=== PATIENT | female | born 1945 | race Caucasian/White ===

== ENCOUNTER 2020-02-18 10:56 | Observation (INO) | payer OTHER, BC ==
[2020-02-18] MEDS ORDERED: METOPROLOL TARTRATE 5 MG/5 ML INJ IV ONE (11:33)
[2020-02-18 11:41] LABS: Protime INR 0.98
[2020-02-18 11:45] LABS: Absolute Lymphocytes (CBC) 1.4 K/uL (0.7-4.9); Basophils % 0.5 % (0-1.3); Hematocrit 35.3 % (36.0-45.0); Lymphocytes % 14.1 % (15.3-44.8); MPV 8.9 fL (7.6-11.3); RBC Red Blood Cell Count 4.65 M/uL (3.86-4.86)
--- NOTE | 2020-02-18 11:46 | EDPHYS ---
Physician Documentation [facility] Name: Danielle Johnson Age: 74 yrs Sex: Female : 1945 Arrival Date: 02/18/2020 Time: 10:59 Bed 2 Private MD: ED Physician Alli Santiago HPI: 02/17 19:32 This 74 yrs old Female presents to ER via Wheelchair with complaints of Afib kdr w/ RVR. 19:32 The patient presents with a history of heart racing. Context: The symptoms occur at kdr rest. Onset: The symptoms/episode began/occurred at an unknown time. Duration: The patient or guardian reports a single episode, that is still ongoing. Modifying factors: The symptoms are aggravated by nothing. The symptoms are alleviated by nothing. Associated signs and symptoms: The patient has no apparent associated signs or symptoms. Severity of symptoms: At their worst the symptoms were moderate in the emergency department the symptoms are unchanged. The patient has not experienced similar symptoms in the past. The patient was sent from client renewal specialist office. Historical: - Allergies: 11:00 Bactrim; rb1 - Immunization history:: Adult Immunizations up to date. - Social history:: Smoking status: Patient/guardian denies using. ROS: 19:32 Constitutional: Negative for fever, chills, and weight loss, Eyes: Negative for injury, kdr pain, redness, and discharge, ENT: Negative for injury, pain, and discharge, Neck: Negative for injury, pain, and swelling, Cardiovascular: Negative for chest pain, palpitations, and edema - the patient states that she had no idea her heart rate was elevated Respiratory: Negative for shortness of breath, cough, wheezing, and pleuritic chest pain, Abdomen/GI: Negative for abdominal pain, nausea, vomiting, diarrhea, and constipation, Back: Negative for injury and pain, : Negative for injury, bleeding, discharge, and swelling, MS/Extremity: Negative for injury and deformity, Skin: Negative for injury, rash, and discoloration, Neuro: Negative for headache, weakness, numbness, tingling, and seizure activity. Psych: Negative for depression, anxiety, suicide ideation, homicidal ideation, and hallucinations, Allergy/Immunology: Negative for hives, rash, and allergies, Endocrine: Negative for neck swelling, polydipsia, polyuria, polyphagia, and marked weight changes, Hematologic/Lymphatic: Negative for swollen nodes, abnormal bleeding, and unusual bruising. Exam: 11:59 ECG was reviewed by the Attending Physician. kdr 19:32 Constitutional: This is a well developed, well nourished patient who is awake, alert, kdr and in no acute distress. Head/Face: Normocephalic, atraumatic. Eyes: Pupils equal round and reactive to light, extra-ocular motions intact. Lids and lashes normal. Conjunctiva and sclera are non-icteric and not injected. Cornea within normal limits. Periorbital areas with no swelling, redness, or edema. Neck: Trachea midline, no thyromegaly or masses palpated, and no cervical lymphadenopathy. Supple, full range of motion without nuchal rigidity, or vertebral point tenderness. No Meningismus. Chest/axilla: Normal chest wall appearance and motion. Nontender with no deformity. No lesions are appreciated. Respiratory: Lungs have equal breath sounds bilaterally, clear to auscultation and percussion. No rales, rhonchi or wheezes noted. No increased work of breathing, no retractions or nasal flaring. Abdomen/GI: Soft, non-tender, with normal bowel sounds. No distension or tympany. No guarding or rebound. No evidence of tenderness throughout. Back: No spinal tenderness. No costovertebral tenderness. Full range of motion. Skin: Warm, dry with normal turgor. Normal color with no rashes, no lesions, and no evidence of cellulitis. MS/ Extremity: Pulses equal, no cyanosis. Neurovascular intact. Full, normal range of motion. Neuro: Awake and alert, GCS 15, oriented to person, place, time, and situation. Cranial nerves II-XII grossly intact. Motor strength 5/5 in all extremities. Sensory grossly intact. Cerebellar exam normal. Normal gait. Psych: Awake, alert, with orientation to person, place and time. Behavior, mood, and affect are within normal limits. 19:32 Cardiovascular: Rate: tachycardic, Rhythm: irregularly irregular, Pulses: no pulse deficits are appreciated, Heart sounds: normal, Edema: is not appreciated. Vital Signs: 11:00 BP 146 / 94; Pulse 146; Resp 21; Pulse Ox 98% on R/A; Weight 92.53 kg (R); Height 5 ft. rb1 7 in. (170.18 cm) (R); Pain 0/10; 11:15 BP 126 / 63; Pulse 147; Resp 24; Pulse Ox 98% ; Pain 0/10; rb1 11:30 BP 121 / 69; Pulse 118; Resp 22; Pulse Ox 97% on R/A; Pain 0/10; rb1 11:45 BP 97 / 68; Pulse 107; Resp 22; Pulse Ox 98% ; Pain 0/10; rb1 12:00 BP 92 / 66; Pulse 110; Resp 21; Pulse Ox 97% ; rb1 12:15 BP 103 / 68; Pulse 108; Resp 20; Pulse Ox 98% ; Pain 0/10; rb1 13:15 BP 99 / 73; Pulse 114; Resp 21; Pulse Ox 99% ; Pain 0/10; rb1 14:00 BP 120 / 81; Pulse 117; Resp 19; Pulse Ox 98% ; rb1 15:20 BP 98 / 57; Pulse 68; Resp 21; Pulse Ox 98% ; Pain 0/10; rb1 11:00 Body Mass Index 31.95 (92.53 kg, 170.18 cm) rb1 MDM: 11:46 Patient medically screened. kdr 19:32 Data reviewed: vital signs, nurses notes. Counseling: I had a detailed discussion with kdr the patient and/or guardian regarding: the historical points, exam findings, and any diagnostic results supporting the discharge/admit diagnosis, lab results, radiology results, the need for further work-up and treatment in the hospital. 02/17 11:21 Order name: Basic Metabolic Panel [facility] 02/17 11:21 Order name: CBC with Diff [facility] 02/17 11:21 Order name: LFT's [facility] 02/17 11:21 Order name: Magnesium [facility] 02/17 11:21 Order name: NT PRO-BNP [facility] 02/17 11:21 Order name: PT-INR [facility] 02/17 11:21 Order name: Troponin (emerg Dept Use Only) [facility] 02/17 11:21 Order name: Basic Metabolic Panel [facility] 02/17 11:21 Order name: CBC with Automated Diff [facility] 02/17 11:21 Order name: Liver (Hepatic) Function [facility] 02/17 12:03 Order name: LAB Add On sv 02/17 12:25 Order name: T4 Free [facility] 02/17 12:25 Order name: Thyroid Stimulating Hormone [facility] 02/17 12:25 Order name: T3, Total [facility] 02/17 11:09 Order name: EKG; Complete Time: 11:09 sv 02/17 11:21 Order name: XRAY Chest (1 view) [facility] 02/17 14:35 Order name: CONS Physician Consult [facility] 02/17 14:35 Order name: Regular [facility] 02/17 14:35 Order name: Basic Metabolic Panel [facility] 02/17 14:35 Order name: Basic Metabolic Panel [facility] 02/17 14:35 Order name: Troponin I [facility] 02/17 14:35 Order name: Troponin I [facility] 02/17 14:35 Order name: Troponin I [facility] 02/17 14:36 Order name: EKG Electrocardiogram [facility] 02/17 14:36 Order name: EKG Electrocardiogram [facility] 02/17 14:36 Order name: EKG Electrocardiogram [facility] 02/17 14:36 Order name: EKG Electrocardiogram [facility] 02/17 11:09 Order name: EKG - Nurse/Tech; Complete Time: 11:09 sv 02/17 11:21 Order name: Cardiac monitoring; Complete Time: 11:29 kdr 02/17 11:21 Order name: IV Saline Lock; Complete Time: 11:29 kdr 02/17 11:21 Order name: Labs collected and sent; Complete Time: 11:29 kdr 02/17 11:21 Order name: O2 Per Protocol; Complete Time: 11:29 kdr 02/17 11:21 Order name: O2 Sat Monitoring; Complete Time: 11:29 kdr EC:59 Rate is 146 beats/min. Rhythm is irregularly irregular, A fib with No ectopy. QRS Matthews kdr is Normal. WA interval is normal. QRS interval is normal. Clinical impression: Atrial Fibrillation. Administered Medications: 11:25 Drug: Lopressor 5 mg Route: IVP; Site: left antecubital; rb1 11:48 Drug: Lopressor 5 mg Route: IVP; Site: left antecubital; rb1 12:11 Follow up: Response: No adverse reaction rb1 12:19 Drug: NS 0.9% 500 ml Route: IV; Rate: bolus; Site: left antecubital; rb1 13:52 Follow up: IV Status: Completed infusion rb1 15:20 Drug: PlaVIX 300 mg Route: PO; dm5 15:50 Follow up: Response: No adverse reaction rb1 Disposition: 02/18/20 11:46 Hospitalization ordered by Serafin Carr for Inpatient Admission. Preliminary diagnosis is Atrial fibrillation and flutter. - Bed requested for Telemetry/MedSurg (Inpatient). - Status is Inpatient Admission. rb1 - Condition is Fair. - Problem is new. - Symptoms have improved. Signatures: Dispatcher [employer] EDMS Bridgette Blakely, RN RN dm5 Sindi Simms, RN CEDRIC Alli Santiago MD MD [facility] Jannette Israel, RN RN rb1 Tristian Villar RN RN ja1 Corrections: (The following items were deleted from the chart) 14:58 11:46 Hospitalization Ordered by Serafin Carr MD for Inpatient Admission. Preliminary ja1 diagnosis is Atrial fibrillation and flutter. Bed requested for Telemetry/MedSurg (Inpatient). Status is Inpatient Admission. Condition is Fair. Problem is new. Symptoms have improved. kdr 15:55 14:58 02/18/2020 11:46 Hospitalization Ordered by Serafin Carr MD for Inpatient rb1 Admission. Preliminary diagnosis is Atrial fibrillation and flutter. Bed requested for Telemetry/MedSurg (Inpatient). Status is Inpatient Admission. Condition is Fair. Problem is new. Symptoms have improved. ja1
--- NOTE | 2020-02-18 11:46 | ER ---
Nurse's Notes [facility] Name: Danielle Johnson Age: 74 yrs Sex: Female : 1945 Arrival Date: 02/18/2020 Time: 10:59 Bed 2 Private MD: Diagnosis: Atrial fibrillation and flutter Presentation: 02/17 11:00 Coronavirus screen: Proceed with normal triage. Ebola Screen: Patient denies travel to [facility] an Ebola-affected area in the 21 days before illness onset. Initial Sepsis Screen: Does the patient meet any 2 criteria? RR > 20 per min. HR > 90 bpm. Yes Does the patient have a suspected source of infection? No. Patient's initial sepsis screen is negative. 11:10 Chief complaint: Patient states: sent by Dr Baker's office for Afib w/ RVR. Denies sv CP. Reports SOB at night only. Pr reports that she had seen her PCP for her heart and she was feeling her heart skipping beats. Risk Assessment: Do you want to hurt yourself or someone else? Patient reports no desire to harm self or others. Onset of symptoms was February 18, 2020. 11:10 Method Of Arrival: Wheelchair sv 11:10 Acuity: MELISSA 1 sv Historical: - Allergies: 11:00 Bactrim; rb1 - Immunization history:: Adult Immunizations up to date. - Social history:: Smoking status: Patient/guardian denies using. Screenin:00 Abuse screen: Denies threats or abuse. Nutritional screening: No deficits noted. rb1 Tuberculosis screening: No symptoms or risk factors identified. Fall Risk None identified. Assessment: 11:00 General: Appears in no apparent distress. comfortable, Behavior is calm, cooperative. rb1 Pain: Denies pain. Neuro: Level of Consciousness is awake, alert, obeys commands, Oriented to person, place, time, situation. Cardiovascular: Capillary refill < 3 seconds Patient's skin is warm and dry. Rhythm is atrial fibrillation with rapid ventricular response. Respiratory: Airway is patent Respiratory effort is even, unlabored, Respiratory pattern is regular, symmetrical. GI: No signs and/or symptoms were reported involving the gastrointestinal system. : No signs and/or symptoms were reported regarding the genitourinary system. Musculoskeletal: Range of motion: intact in all extremities. 12:00 Reassessment: Patient appears in no apparent distress at this time. Pt. resting with rb1 eyes closed, respirations even, unlabored. 13:00 Reassessment: Patient appears in no apparent distress at this time. Patient and/or rb1 family updated on plan of care and expected duration. Pain level reassessed. Patient is alert, oriented x 3, equal unlabored respirations, skin warm/dry/pink. Patient denies pain at this time. 13:56 Reassessment: Dr Santiago to input admission orders. sv 14:00 Reassessment: Patient appears in no apparent distress at this time. No changes from rb1 previously documented assessment. Pt. talking on the telephone. 14:35 Reassessment: [place] sent to outside lab for tyroid levels. sv 15:00 Reassessment: Patient appears in no apparent distress at this time. Patient and/or rb1 family updated on plan of care and expected duration. Pain level reassessed. Patient is alert, oriented x 3, equal unlabored respirations, skin warm/dry/pink. Patient denies pain at this time. Respiratory: Denies shortness of breath. 15:22 Reassessment: Tried to call report, unable to give report at this time, unsure what rb1 nurse is getting the pt. 15:36 Reassessment: Tried to call report, spoke to JOSEFINA RN and he stated, that [employer] rb1 called and wants him in the ED so he is no getting the pt. now, Leanna will be giving his pt. to other nurses. Vital Signs: 11:00 BP 146 / 94; Pulse 146; Resp 21; Pulse Ox 98% on R/A; Weight 92.53 kg (R); Height 5 ft. rb1 7 in. (170.18 cm) (R); Pain 0/10; 11:15 BP 126 / 63; Pulse 147; Resp 24; Pulse Ox 98% ; Pain 0/10; rb1 11:30 BP 121 / 69; Pulse 118; Resp 22; Pulse Ox 97% on R/A; Pain 0/10; rb1 11:45 BP 97 / 68; Pulse 107; Resp 22; Pulse Ox 98% ; Pain 0/10; rb1 12:00 BP 92 / 66; Pulse 110; Resp 21; Pulse Ox 97% ; rb1 12:15 BP 103 / 68; Pulse 108; Resp 20; Pulse Ox 98% ; Pain 0/10; rb1 13:15 BP 99 / 73; Pulse 114; Resp 21; Pulse Ox 99% ; Pain 0/10; rb1 14:00 BP 120 / 81; Pulse 117; Resp 19; Pulse Ox 98% ; rb1 15:20 BP 98 / 57; Pulse 68; Resp 21; Pulse Ox 98% ; Pain 0/10; rb1 11:00 Body Mass Index 31.95 (92.53 kg, 170.18 cm) rb1 ED Course: 10:59 Patient arrived in ED. sv 11:00 Arm band placed on right wrist. rb1 11:00 Patient has correct armband on for positive identification. Bed in low position. Call rb1 light in reach. Side rails up X 1. playground monitor on. Pulse ox on. NIBP on. 11:01 Gus Dickson, RN is Primary Nurse. bp 11:11 Triage completed. sv 11:19 Alli Santiago MD is Attending Physician. kdr 11:22 Inserted saline lock: 20 gauge in left antecubital area, using aseptic technique. dh3 11:46 Serafin Carr MD is Hospitalizing Provider. kdr 11:51 XRAY Chest (1 view) In Process Unspecified. EDMS 13:42 Primary Nurse role handed off by Gus Dickson, CEDRIC rb1 13:42 Jannette Israel, RN is Primary Nurse. rb1 15:55 No provider procedures requiring assistance completed. Patient admitted, IV remains in rb1 place. Administered Medications: 11:25 Drug: Lopressor 5 mg Route: IVP; Site: left antecubital; rb1 11:48 Drug: Lopressor 5 mg Route: IVP; Site: left antecubital; rb1 12:11 Follow up: Response: No adverse reaction rb1 12:19 Drug: NS 0.9% 500 ml Route: IV; Rate: bolus; Site: left antecubital; rb1 13:52 Follow up: IV Status: Completed infusion rb1 15:20 Drug: PlaVIX 300 mg Route: PO; dm5 15:50 Follow up: Response: No adverse reaction rb1 Outcome: 11:46 Decision to Hospitalize by Provider. kdr 15:55 Patient left the ED. rb1 15:55 Admitted to Med/surg accompanied by nurse, via wheelchair, room 208. Edilberto took the rb1 pt. to the floor, with chart. 15:55 Condition: stable 15:55 Instructed on the need for admit. Signatures: Dispatcher [employer] EDMS Bridgette Blakely RN RN dm5 Sindi Simms RN Alli Villalpando MD MD [facility] Jannette Israel RN RN [facility] Betzy Pradhan [facility] Gus Dickson RN RN bp Corrections: (The following items were deleted from the chart) 11:30 General: Appears in no apparent distress. comfortable, Behavior is calm, rb1 cooperative, rb1 11:30 Pain: Denies pain. rb1 rb1 11:30 Neuro: Level of Consciousness is awake, alert, obeys commands, Oriented to rb1 person, place, time, situation, rb1 11:30 Cardiovascular: Capillary refill < 3 seconds Patient's skin is warm and dry. rb1 Rhythm is atrial fibrillation with rapid ventricular response rb1 11:30 Respiratory: Airway is patent Respiratory effort is even, unlabored, Respiratory rb1 pattern is regular, symmetrical, rb1 11:30 GI: No signs and/or symptoms were reported involving the gastrointestinal system. rb1 rb1 11:30 : No signs and/or symptoms were reported regarding the genitourinary system. rb1rb1 11:30 Musculoskeletal: Range of motion: intact in all extremities, rb1 rb1
[2020-02-18 12:07] LABS: ALT/SGPT 9 U/L (12-78); AST/SGOT 9 U/L (15-37); Albumin 3.1 g/dL (3.4-5.0); Alkaline Phosphatase 100 U/L (45-117); BUN Blood Urea Nitrogen 13 mg/dL (7-18); Bicarbonate 25 mmol/L (21-32); Bilirubin Direct 0.1 mg/dL (0-0.2); Bilirubin Total 0.5 mg/dL (0.2-1.0); Glucose Level 98 mg/dL (74-106); Magnesium 1.5 mg/dL (1.8-2.4); NT PRO-BNP 1722 pg/mL (<125); Potassium 3.9 mmol/L (3.5-5.1); Protein, Total 7.5 g/dL (6.4-8.2); Sodium Level 139 mmol/L (136-145); Troponin (Emerg Dept Use Only) < 0.02 ng/mL (0.0-0.045)
--- NOTE | 2020-02-18 12:12 | RAD REPORT ---
EXAM DESCRIPTION: RAD - Chest Single View - 02/18/2020 11:50 am CLINICAL HISTORY: Chest pain;Palpitations COMPARISON: January 05, 2020 TECHNIQUE: AP portable chest image was obtained 02/18/2020 11:50 am . FINDINGS: Lungs are clear. Heart and vasculature are normal. No measurable pleural effusion and no p neumothorax. No acute bony abnormality seen. No acute aortic findings suspected. IMPRESSION: No acute cardiopulmonary process. No significant change from comparison.
[2020-02-18] MEDS ORDERED: NA CHLORIDE 0.9% 500 ML ONE (12:21)
[2020-02-18 13:07] LABS: Thyroid Stimulating Hormone 0.684 uIU/mL (0.360-3.740)
--- OUTSIDE RECORDS SUMMARY | 2020-02-18 13:41 | XMS REPORT | Continuity of Care Document ---
:1945 Author Organization [facility] t Address [address] [place] [address] Dr. Mccullough [address] [place] [id number] Care Team Providers Name Role Phone Unavailable Unavailable Unavailable Problems This patient has no known problems. Allergies, Adverse Reactions, Alerts This patient has no known allergies or adverse reactions. Medications This patient has no known medications. Procedures This patient has no known procedures. Results This patient has no known results.
[2020-02-18] MEDS ORDERED: ACETAMINOPHEN 500 MG TAB PO PRN (14:32)
[2020-02-18] MEDS ORDERED: ONDANSETRON 4 MG/2 ML VIAL IV PRN (14:32)
[2020-02-18] MEDS ORDERED: CLOPIDOGREL 75 MG TABLET ONE ×3 (15:25→15:32)
[2020-02-18 17:04] VITALS: BMI 31.9
--- NOTE | 2020-02-18 21:43 | P.SSS ---
Patient History Date of Service: 02/18/20 Reason for admission: RAPID A FIB. SENT BY DR. LINN History of Present Illness: PILAR HAS NO ACUTE SYMPTOMS. SHE WENT TO DR. LINN FOR CARDIAC CHECK UP, WAS FOUND TO HAVE RAPID A FIB, SENT TO ER. DR. TRINH MEDICATED HER WITH B RAYMON AND CONTROLLED RATE. I PUT HER ON ELIQUIS BID START TONIGHT. IDEALLY SHE HAVING NO SYMPOTMS WILL BE GOOD CANDIDATE FOR LIFE TIME ELIQUIS AND RATE CONTROL. Allergies sulfamethoxazole [From Bactrim] Allergy (Verified 08/25/18 09:17) Itching/Hives/Rash trimethoprim [From Bactrim] Allergy (Verified 08/25/18 09:17) Itching/Hives/Rash Home Medications: Aspirin 81 mg PO DAILY 07/29/18 Atorvastatin Calcium [Lipitor] 20 mg PO BEDTIME 07/29/18 Cyanocobalamin [Vitamin B-12] 1,000 mcg PO BID 07/29/18 Levothyroxine Sodium 175 mcg PO DAILY 07/29/18 Losartan Potassium [Cozaar] 50 mg PO DAILY 07/29/18 Metformin HCl [Glucophage] 1,000 mg PO BID 07/29/18 Pantoprazole Sodium [Protonix] 20 mg PO DAILY 07/29/18 Sertraline HCl 50 mg PO DAILY 07/29/18 - Past Medical/Surgical History Has patient received pneumonia vaccine in the past: Yes Diabetic: Yes -: left foot charcot -: right foot skin graft -: htn -: dm -: hypothyroid -: osteo of foot/sepsis -: joint replacement -: lumbar fusion -: right knee -: sheri - Social History Smoking Status: Never smoker Alcohol use: No Place of Residence: Home Review of Systems 10-point ROS is otherwise unremarkable Physical Examination - Vital Signs Temperature: 98.6 F Blood Pressure: 131/60 Pulse: 87 Respirations: 18 Pulse Ox (%): 97 - Physical Exam General: Alert, In no apparent distress, Obese HEENT: Atraumatic, PERRLA, Mucous membr. moist/pink, EOMI, Sclerae nonicteric Neck: Supple, 2+ carotid pulse no bruit, No LAD, Without JVD or thyroid abnormality Respiratory: Clear to auscultation bilaterally, Normal air movement Cardiovascular: Irregular heart rate/rhythm, Abnormal S1 S2 Gastrointestinal: Normal bowel sounds, No tenderness Musculoskeletal: No tenderness Integumentary: No rashes Neurological: Normal gait, Normal speech, Normal strength at 5/5 x4 extr, Normal tone, Normal affect Lymphatics: No axilla or inguinal lymphadenopathy - Studies Laboratory Data (last 24 hrs) 02/18/20 11:20: PT 11.6, INR 0.98 02/18/20 11:20: WBC 10.3, Hgb 11.2 L, Hct 35.3 L, Plt Count 335 02/18/20 11:20: Sodium 139, Potassium 3.9, BUN 13, Creatinine 0.81, Glucose 98, Magnesium 1.5 L, Total Bilirubin 0.5, AST 9 L, ALT 9 L, Alkaline Phosphatase 100 - Diagnosis (Problem(s)) (1) A-fib Current Visit: Yes Status: Acute Plan: NEW ONSET. CONTROLLED NOW. ELIQUIS AND SOTALOL. STOP OTHER B RAYMON. MAY NOT NEED CARDIOVERSION. Qualifiers: Atrial fibrillation type: paroxysmal Qualified Code(s): I48.0 - Paroxysmal atrial fibrillation (2) Diabetes Current Visit: No Status: Chronic Qualifiers: Diabetes mellitus type: type 2 Diabetes mellitus complication status: with diabetic arthropathy - Disposition Disposition: ROUTINE DISCHARGE
[2020-02-18] MEDS: APIXABAN 2.5 MG TABLET PO SCH (22:00)
[2020-02-19] MEDS ORDERED: SOTALOL HCL 80 MG TAB PO SCH (06:00)
[2020-02-19 06:19] LABS: Absolute Lymphocytes (CBC) 1.1 K/uL (0.7-4.9); Basophils % 0.4 % (0-1.3); Hematocrit 27.8 % (36.0-45.0); Lymphocytes % 19.6 % (15.3-44.8); MPV 8.7 fL (7.6-11.3); RBC Red Blood Cell Count 3.65 M/uL (3.86-4.86)
[2020-02-19] MEDS ORDERED: PANTOPRAZOLE 40MG TABLET PO SCH (06:30)
[2020-02-19] MEDS ORDERED: LEVOTHYROXINE SOD 0.1 MG TAB PO SCH (06:30)
[2020-02-19] MEDS ORDERED: LEVOTHYROXINE SOD 0.075 MG TAB PO SCH (06:30)
[2020-02-19 06:38] LABS: BUN Blood Urea Nitrogen 12 mg/dL (7-18); Bicarbonate 26 mmol/L (21-32); Glucose Level 98 mg/dL (74-106); Potassium 3.5 mmol/L (3.5-5.1); Sodium Level 144 mmol/L (136-145)
[2020-02-19] MEDS ORDERED: METFORMIN HCL 500 MG TAB PO SCH (08:00)
[2020-02-19 08:32] VITALS: O2SAT 96
[2020-02-19] MEDS: APIXABAN 2.5 MG TABLET PO SCH (08:37)
[2020-02-19 08:51] VITALS: BP 127/70; TEMP 98.1
[2020-02-19] MEDS ORDERED: SERTRALINE HCL 50 MG TAB PO SCH (09:00)
[2020-02-19] MEDS ORDERED: LOSARTAN POTASSIUM 50 MG TABLET PO SCH ×2 (09:00)
[2020-02-19] MEDS ORDERED: CYANOCOBALAMIN 1,000 MCG TAB PO SCH (09:00)
[2020-02-19] MEDS ORDERED: ASPIRIN EC 81 MG TAB PO SCH (09:00)
[2020-02-19] MEDS ORDERED: HOME MED 1 EA UNK (Levothyroxine Sodium [Levothyroxine Sodium] 175 MCG) PO SCH (09:00)
--- NOTE | 2020-02-19 09:35 | CON ---
Date of Consultation: 02/19/[address] Carr's service on 02/18/2020. I saw the patient on 02/19/2020. Reason For Consultation: Rapid atrial fibrillation. History Of Present Illness: Ms. Johnson is a 74-year-old woman. She has a history of diabetes, h ypertension, hypothyroidism. Has had recent skin graft of her right foot by Dr. Shelton and goes to [facility]. She went to my office yesterday and saw Dr. Sapp for cardiac evaluation and was noted to be in rapid atrial fibrillation. No symptoms. She was sent to the emergency room for further evalu ation and treatment. She denied any chest pain, shortness of breath, nausea, vomiting, diaphoresis, PND, orthopnea, pedal edema, palpitations, or syncope. Past Medical History: As stated above. Allergies: SHE IS ALLERGIC TO BACTRIM. Review of Systems: Negative. Social History: Negative. Family History: Negative. Medications: At home include aspirin, Lipitor, Synthroid, losartan, metformin, and Protonix. Physical Examination: General: She is very pleasant. No acute distress. Vital Signs: When I saw her, she was in sinus rhythm. She is afebrile. HEENT: Negative. Neck: Supple with no bruit, lymphadenopathy, JVD, or thyromegaly. Chest: Clear to auscultation and percussion. Cardiac: Revealed a regular rhythm and rate. No murmurs, gallops, or rubs. Abdomen: Benign. Extremities: Revealed no clubbing, cyanosis, or edema. Neurologic: She was nonfocal. Skin: Dry and intact. Diagnostic Data: Chest x-ray was normal. Initial EKG showed atrial fibrillation. She is now in sin us rhythm. Her laboratory evaluation was otherwise normal. Impression And Plan: New onset atrial fibrillation that has resolved on Betapace. I would send her home on Betapace 80 b.i.d. and Eliquis which was started already by Dr. Carr. She can go home whene mary anne it is okay with Dr. Carr. We will see her in the office in the next week or 2. I will make arr angements for her to have an echocardiogram as an outpatient. She has had a negative heart catheteri zation before in the past. Her other problems including hypertension, diabetes, gastroesophageal ref lux disease, and dyslipidemia are stable at this point. LISBET/CHRIS Voice ID: [id number] Report ID: [id number]
[2020-02-19] MEDS ORDERED: ATORVASTATIN 20 MG TAB PO SCH (21:00)
--- NOTE | 2020-02-20 08:58 | EKG ---
Test Date: 2020-02-19 Test Time: 08:46:36 Coil Winder Strap: GEO MEASUREMENT RESULTS: Intervals: Rate: 61 WA: 154 QRSD: 84 QT: 436 QTc: 438 [place]: P: 38 WA: 154 QRS: -45 T: 10 INTERPRETIVE STATEMENTS: Sinus rhythm with marked sinus arrhythmia Left anterior fascicular block Minimal voltage criteria for LVH, may be normal variant Abnormal ECG Compared to ECG 02/18/2020 11:02:51 Atrial fibrillation no longer present Electronically Signed On 02-20-20 08:55:28 CDT by Ramón Baker
== END 2020-02-19 11:37 | disposition home or self-care (01) ==
LOC: ER 10:56 → INTOOBSV 14:50 → ERHOLD 14:50 → 2ND 15:46
PROVIDERS: ADMIT Internal Medicine; ATTEND Internal Medicine
DX: I48.0 Paroxysmal atrial fibrillation (principal); E11.618 Type 2 diabetes mellitus with other diabetic arthropathy; E11.9 Type 2 diabetes mellitus without complications; I10 Essential (primary) hypertension; E03.9 Hypothyroidism, unspecified; E78.5 Hyperlipidemia, unspecified; K21.9 Gastro-esophageal reflux disease without esophagitis; I44.30 Unspecified atrioventricular block; R94.31 Abnormal electrocardiogram [ECG] [EKG]; Z11.59 Encounter for screening for other viral diseases; Z79.82 Long term (current) use of aspirin; Z79.84 Long term (current) use of oral hypoglycemic drugs; Z79.899 Other long term (current) drug therapy
CPT/HCPCS: 96361; 93005 ×2; 85025 ×2; 80048 ×2; 36415 ×2; 83735; 85610; 82947 ×2; 80076; 84443; 84484 ×2; 84439; 84480; 83880; 71045; 96374; 99291; U0002; J7040; G0378 ×3

== ENCOUNTER 2024-08-25 15:57 | Inpatient (IN) | payer OTHER, BC ==
--- OUTSIDE RECORDS SUMMARY | 2024-08-25 16:00 | XMS REPORT | Continuity of Care Document ---
Author Name Unknown Address [address] [place] [address] [employer] Address [address] [place] [address] Care Team Providers Care Director [employer] Database Name Role Phone Unavailable Unavailable Unavailable
--- NOTE | 2024-08-25 16:46 | EDPHYS ---
Physician Documentation [facility] Name: Danielle Johnson Age: 79 yrs Sex: Female : 1945 Arrival Date: 08/25/2024 Time: 15:57 Bed 15 Private MD: ED Physician Tom Thompson HPI: 08/25 16:17 This 79 yrs old Female presents to ER via Ambulatory with complaints of Wound Infection.rn 16:17 The patient presents with cellulitis of the right leg. Onset: The symptoms/episode rn began/occurred yesterday. Possible cause(s): unknown. Modifying factors: the symptoms are alleviated by nothing, the symptoms are aggravated by squeezing the lesion and expressing the contents, touching. Severity of symptoms: At their worst the symptoms were moderate, in the emergency department the symptoms are unchanged. The patient has not experienced similar symptoms in the past. Patient reports longstanding right foot wound, saw podiatry today and sent here for admission and IV antibiotics. Patient reports has diabetes. Has been receiving local wound care to this wound but noticed yesterday increased redness and now draining with foul smell. Also reports subjective fever and chills. Historical: - Allergies: 16:13 Bactrim; tm6 - PMHx: 16:13 Diabetes mellitus; Atrial fibrillation; aortic stenosis; Hypothyroidism; Hypertensive tm6 disorder; - PSHx: 16:13 right foot; tm6 16:28 Cholecystectomy; back fusion; right knee; tm6 - Immunization history:: Flu vaccine is not up to date. - Infectious Disease History:: Denies. - Social history:: Smoking status: Patient denies any tobacco usage or history of. - Family history:: not pertinent. - Hospitalizations: : No recent hospitalization is reported. ROS: 16:17 Constitutional: Positive for fever and chills Cardiovascular: Negative for chest pain, rn palpitations, and edema, Respiratory: Negative for shortness of breath, cough, wheezing, and pleuritic chest pain, Abdomen/GI: Negative for abdominal pain, nausea, vomiting, diarrhea, and constipation, MS/Extremity: Positive for open wound to right foot Exam: 16:17 Constitutional: This is a well developed, well nourished patient who is awake, alert, rn and in no acute distress. Cardiovascular: Regular rate and rhythm. No pulse deficits. Respiratory: No increased work of breathing, no retractions or nasal flaring. MS/ Extremity: No cyanosis. Open wound to plantar surface of the right foot with extension to dorsal/lateral surface with foul smell and purulent drainage. Erythema extends proximal to right ankle and streaking formation. Vital Signs: 16:12 BP 149 / 79; Pulse 75; Resp 19; Temp 98.8(O); Pulse Ox 98% on R/A; MAP 99 mmHg; Weight tm6 95.25 kg; Height 5 ft. 7 in. ; Pain 0/10; 16:30 BP 114 / 60; Pulse 67; Resp 17; Pulse Ox 100% ; me1 17:00 BP 109 / 67; Pulse 66; Resp 21; Pulse Ox 99% ; me1 17:30 BP 124 / 57; Pulse 65; Resp 21; Pulse Ox 100% ; me1 16:12 Body Mass Index 32.89 (95.25 kg, 170.18 cm) tm6 16:12 Pain Scale: Adult tm6 MDM: 16:02 Medical Screening Exam initiated rn 16:45 Differential diagnosis: cellulitis, Wound infection, osteomyelitis, lymphangitis. rn 16:45 Data reviewed: vital signs, nurses notes, and as a result, I will admit patient. rn Consideration of Admission/Observation Patient was admitted/placed on observation. Escalation of care including admission/observation considered. Care significantly affected by the following chronic conditions: Diabetes. Counseling: I had a detailed discussion with the patient and/or guardian regarding the historical points, exam findings, and any diagnostic results supporting the discharge/admit diagnosis, lab results, radiology results, the need for further work-up and treatment in the hospital. 16:57 Data reviewed: lab test result(s). rn 08/25 16:15 Order name: Blood Culture Adult (2); Complete Time: 17:10 rn 08/25 16:15 Order name: CBC with Diff; Complete Time: 16:57 rn 08/25 16:15 Order name: CMP; Complete Time: 17:07 rn 08/25 16:15 Order name: Lactate w/ 2H reflex if indic.; Complete Time: 17:06 rn 08/25 16:15 Order name: Protime (+inr); Complete Time: 17:06 rn 08/25 16:15 Order name: Ptt, Activated; Complete Time: 17:06 rn 08/25 16:15 Order name: Wound Culture; Complete Time: 17:10 rn 08/25 16:45 Order name: XRAY Foot RIGHT 3 View rn 08/25 17:28 Order name: RAD; Complete Time: 17:10 EDMS 08/25 16:15 Order name: EKG; Complete Time: 16:15 rn 08/25 17:03 Order name: CONS Physician Consult EDMS 08/25 16:15 Order name: Accucheck; Complete Time: 17:53 rn 08/25 16:15 Order name: Cardiac monitoring; Complete Time: 16:25 rn 08/25 16:15 Order name: EKG - Nurse/Tech; Complete Time: 16:25 rn 08/25 16:15 Order name: IV Saline Lock - Large Bore; Complete Time: 16:36 rn 08/25 16:15 Order name: Labs collected and sent; Complete Time: 16:36 rn 08/25 16:15 Order name: O2 Per Protocol; Complete Time: 16:25 rn 08/25 16:15 Order name: O2 Sat Monitoring; Complete Time: 16:25 rn 08/25 16:15 Order name: Vital Signs; Complete Time: 16:25 rn Administered Medications: 17:03 Drug: vancoMYCIN IVPB 1 grams IVPB once over 2 hrs Route: IVPB; Infused Over: 2 hrs; nv1 Site: left antecubital; 17:53 Follow up: IV Status: Infusion continued upon admission me1 Disposition Summary: 08/25/24 16:46 Hospitalization Ordered Notes: Hospitalization Status: Inpatient Admission rn Provider: Serafin Carr rn [facility] rn Condition: Stable rn Problem: new rn Symptoms: are unchanged rn Bed/Room Type: Standard rn Room Assignment: 410(08/25/24 17:09) ja1 Diagnosis - Cellulitis of right lower limb rn Forms: - Medication Reconciliation Form rn - SBAR form rn - Leadership Thank You Letter rn Signatures: Dispatcher [employer] Ritu Reyes Roman, MD MD rn Aguilar, Jose, RN RN ja1 Meeta Byrd, RN RN me1 Niki Vega, RN RN tm6 Corrections: (The following items were deleted from the chart) 16:15 16:15 BLOOD CULTURE*+BA.LAB.BRZ ordered. EDMS EDMS 16:15 16:15 CBC+H.LAB.BRZ ordered. EDMS EDMS 16:15 16:15 COMPREHENSIVE METABOLIC PANEL+C.LAB.BRZ ordered. EDMS EDMS 16:15 16:15 LACTATE+C.LAB.BRZ ordered. EDMS EDMS 16:15 16:15 PROTIME (+INR)+COAG.LAB.BRZ ordered. EDMS EDMS 16:15 16:15 PTT, ACTIVATED+COAG.LAB.BRZ ordered. EDMS EDMS 16:15 16:15 Wound Culture+BA.LAB.BRZ ordered. EDMS EDMS 17:09 16:46 rn bd 17:09 17:09 204 bd ja1
--- NOTE | 2024-08-25 16:46 | ER ---
Nurse's Notes [facility] Name: Danielle Johnson Age: 79 yrs Sex: Female : 1945 Arrival Date: 08/25/2024 Time: 15:57 Bed 15 Private MD: Diagnosis: Cellulitis of right lower limb Presentation: 08/25 16:12 Chief complaint: Patient states: I have a wound on the bottom of my right foot. We do tm6 wound care on it every day. Today I saw Dr. Shelton and he sent me here to have it checked out. Yesterday I felt warm/chills. Coronavirus screen: Client denies travel out of the [place] in the last 14 days. Ebola Screen: Patient negative for fever greater than or equal to 101.5 degrees Fahrenheit, and additional compatible Ebola Virus Disease symptoms Patient denies exposure to infectious person. Patient denies travel to an Ebola-affected area in the 21 days before illness onset. No symptoms or risks identified at this time. Initial Sepsis Screen: Does the patient meet any 2 criteria? No. Patient's initial sepsis screen is negative. Does the patient have a suspected source of infection? No. Patient's initial sepsis screen is negative. Risk Assessment: Do you want to hurt yourself or someone else? Patient reports no desire to harm self or others. Onset of symptoms was August 25, 2024. 16:12 Method Of Arrival: Ambulatory tm6 16:12 Acuity: MELISSA 3 tm6 Triage Assessment: 16:13 General: Appears in no apparent distress. Behavior is calm, cooperative. Pain: Denies tm6 pain. EENT: No signs and/or symptoms were reported regarding the EENT system. Neuro: Level of Consciousness is awake, alert, obeys commands, Oriented to person, place, time, situation. Cardiovascular: Patient's skin is warm and dry. Respiratory: Airway is patent Respiratory effort is even, unlabored, Respiratory pattern is regular, symmetrical. GI: No signs and/or symptoms were reported involving the gastrointestinal system. Abdomen is flat, non-distended. : No signs and/or symptoms were reported regarding the genitourinary system. Derm: Wound noted ball of right foot and arch of right foot. Musculoskeletal: No signs and/or symptoms reported regarding the musculoskeletal system. Historical: - Allergies: 16:13 Bactrim; tm6 - PMHx: 16:13 Diabetes mellitus; Atrial fibrillation; aortic stenosis; Hypothyroidism; Hypertensive tm6 disorder; - PSHx: 16:13 right foot; tm6 16:28 Cholecystectomy; back fusion; right knee; tm6 - Immunization history:: Flu vaccine is not up to date. - Infectious Disease History:: Denies. - Social history:: Smoking status: Patient denies any tobacco usage or history of. - Family history:: not pertinent. - Hospitalizations: : No recent hospitalization is reported. Screenin:47 [facility] ED Fall Risk Assessment (Adult) History of falling in the last 3 months, me1 including since admission No falls in past 3 months (0 pts) Confusion or Disorientation No (0 pts) Intoxicated or Sedated No (0 pts) Impaired Gait No (0 pts) Mobility Assist Device Used No (0 pt) Altered Elimination No (0 pt) Score/Fall Risk Level 0 - 2 = Low Risk Maintained a safe environment, Provided non-skid footwear, Hourly rounding (assess needs \T\ fall precautionary measures) done. Abuse screen: Denies threats or abuse. Nutritional screening: No deficits noted. Tuberculosis screening: No symptoms or risk factors identified. Assessment: 16:47 General: Appears comfortable, well groomed, well developed, well nourished, Behavior is me1 calm, cooperative, appropriate for age, Reports I have a wound on the bottom of my right foot. We do wound care on it every day. Today I saw Dr. Shelton and he sent me here to have it checked out. Yesterday I felt warm/chills. Pain: Denies pain. Neuro: Level of Consciousness is awake, alert, obeys commands, Oriented to person, place, time, situation, Appropriate for age. Cardiovascular: Patient's skin is warm and dry. Respiratory: Airway is patent Trachea midline Respiratory effort is even, unlabored, Respiratory pattern is regular, symmetrical. GI: No signs and/or symptoms were reported involving the gastrointestinal system. : No signs and/or symptoms were reported regarding the genitourinary system. EENT: No signs and/or symptoms were reported regarding the EENT system. Derm: Skin is healthy with good turgor, Skin is pink, warm \T\ dry. Wound noted right foot and arch of right foot and ball of right foot Wound is diabetic ulcer with purulent drainage. Musculoskeletal: Circulation, motion, and sensation intact. Range of motion: intact in all extremities. Vital Signs: 16:12 BP 149 / 79; Pulse 75; Resp 19; Temp 98.8(O); Pulse Ox 98% on R/A; MAP 99 mmHg; Weight tm6 95.25 kg; Height 5 ft. 7 in. ; Pain 0/10; 16:30 BP 114 / 60; Pulse 67; Resp 17; Pulse Ox 100% ; me1 17:00 BP 109 / 67; Pulse 66; Resp 21; Pulse Ox 99% ; me1 17:30 BP 124 / 57; Pulse 65; Resp 21; Pulse Ox 100% ; me1 16:12 Body Mass Index 32.89 (95.25 kg, 170.18 cm) tm6 16:12 Pain Scale: Adult tm6 ED Course: 16:02 Patient arrived in ED. sj2 16:02 Tom Thompson MD is Attending Physician. rn 16:09 Meeta Byrd RN is Primary Nurse. me1 16:13 Triage completed. tm6 16:13 Arm band placed on right wrist. tm6 16:20 Wound culture swab sent to lab. me1 16:25 Client placed on continuous cardiac and pulse oximetry monitoring. NIBP monitoring tm6 applied. monitor tech on. Pulse ox on. NIBP on. 16:25 EKG done, by ED staff, reviewed by Tom Thompson MD. tm6 16:32 Initial lab(s) drawn, by ak, sent to lab. First set of blood cultures drawn by ak. me1 16:36 Inserted saline lock: 20 gauge in left antecubital area, using aseptic technique. me1 16:36 Blood Culture Adult (2) Sent. me1 16:36 CBC with Diff Sent. me1 16:36 CMP Sent. ak1 16:36 Lactate w/ 2H reflex if indic. Sent. me1 16:36 Protime (+inr) Sent. ak1 16:36 Ptt, Activated Sent. me1 16:45 Second set of blood cultures drawn by ak. me1 16:46 Serafin Carr MD is Hospitalizing Provider. rn 16:47 Patient has correct armband on for positive identification. Bed in low position. Call ak1 light in reach. Side rails up X2. Provided Education on: POC. Verbalized understanding.. 16:47 No provider procedures requiring assistance completed. me1 17:52 Patient admitted, IV remains in place. me1 Administered Medications: 17:03 Drug: vancoMYCIN IVPB 1 grams IVPB once over 2 hrs Route: IVPB; Infused Over: 2 hrs; me1 Site: left antecubital; 17:53 Follow up: IV Status: Infusion continued upon admission me1 Medication: 16:47 VIS not applicable for this client. me1 Outcome: 16:46 Decision to Hospitalize by Provider. rn 17:52 Admitted to Tele accompanied by tech, via wheelchair, room 410, with chart, Report me1 called to faxed 17:52 Condition: stable 17:52 Instructed on the need for admit, 18:05 Patient left the ED. me1 Signatures: Tom Thompson MD MD rn Eddleman, Michelle RN RN me1 Niki Vega RN RN tm6 Kory Johnston sj2 Corrections: (The following items were deleted from the chart) 16:47 16:12 Chief complaint: Patient states: I have a wound on the bottom of my right foot. me1 We do wound care on it every day. Today I saw Dr. Shelton and he sent me here to have it checked out. Yesterday I felt warm/chills. tm6
[2024-08-25 16:50] LABS: Absolute Eosinophils 0.1 K/uL (0-0.5); Absolute Lymphocytes (CBC) 0.7 K/uL (0.7-4.9); Absolute Monocytes 0.6 K/uL (0.1-1.3); Basophils % 0.2 % (0-1.3); Hematocrit 31.7 % (36.0-45.0); MCH 24.4 pg (27.0-35.0); MCHC 31.3 g/dL (32.0-36.0); MCV 77.9 fL (80-100); MPV 8.5 fL (7.6-11.3); Monocytes % 7.7 % (3.3-12.3); Neutrophils % 83.1 % (41.7-73.7); Nucleated Red Blood Cells % 0.2 % (0-0); Platelets 275 thou/uL (152-406); RBC Red Blood Cell Count 4.08 M/uL (3.86-4.86); Red Cell Distribution Width 15.7 % (12.1-15.2)
[2024-08-25] MEDS ORDERED: VANCOMYCIN 1 GM/VIAL ONE (16:52)
[2024-08-25] MEDS ORDERED: NA CHLORIDE 0.9% 250 ML ONE (16:52)
[2024-08-25 17:01] LABS: PT Prothrombin Time 17.2 SECONDS (9.4-12.5); PTT, Activated Partial Thromb 34.7 SECONDS (24.3-36.9); Protime INR 1.56
[2024-08-25 17:04] LABS: ALT/SGPT 15 U/L (13-56); Albumin 3.2 g/dL (3.4-5.0); Albumin/Globulin Ratio 0.8 (1.1-1.8); Alkaline Phosphatase 102 U/L (45-117); Anion Gap 11.2 mEq/L (5.0-15.0); BUN Blood Urea Nitrogen 18 mg/dL (7-18); Bicarbonate 26 mEq/L (21-32); Bilirubin Total 0.6 mg/dL (0.2-1.0); Glomerular Filtration Rate 67 ml/min (=/>90); Glucose Level 92 mg/dL (74-106); Potassium 4.2 mEq/L (3.5-5.1); Protein, Total 7.2 g/dL (6.4-8.2); Sodium Level 137 mEq/L (136-145)
[2024-08-25 17:06] LABS: AST/SGOT < 10 U/L (15-37)
--- NOTE | 2024-08-25 17:27 | RAD REPORT ---
EXAMINATION: XR RIGHT FOOT CLINICAL INDICATION: Female, 79 years old. wound infection TECHNIQUE: Multiple views of the right foot were obtained. COMPARISON: 10/20/2021 FINDINGS: Flatfoot deformity with midfoot collapse noted. Prominent ulceration seen plantar midfoot s oft tissues. Bone exposure is possible in this wound. Advanced degenerative changes are present in the midfoot. Large plantar calcaneal spur.
[2024-08-25 18:22] VITALS: BMI 32.8
[2024-08-25] MEDS ORDERED: ACETAMINOPHEN 500 MG TAB PO PRN (18:22)
[2024-08-25] MEDS: VANCOMYCIN 750 MG in NA CHLORIDE 0.9% 150 ML IVPB ONE (19:44)
--- NOTE | 2024-08-25 21:11 | P.HP ---
Patient History Date of Service: 08/25/24 Reason for admission: RIGHT FOOT INFECTION. History of Present Illness: PILAR IS A DIABETIC WITH CHARCOT JOINTS WHO HAS HAD RECURRENT ULCERS ON THE SOLE OF RIGHT FOOT SHE HAS SEVERE COLLAPSE OF THE ARCH. SHE WAS SENT BY DR. WILDER SHE HAS SHOWN INFECTION OF THE SKIN AROUND THE ULCER NOW STREAKING TO R LATERAL FOOT WITH A SINUS TRACT. Allergies sulfamethoxazole [From Bactrim] Allergy (Verified 08/25/24 19:53) Itching/Hives/Rash trimethoprim [From Bactrim] Allergy (Verified 08/25/24 19:53) Itching/Hives/Rash Home Medications: Atorvastatin Calcium [Lipitor*] 20 mg PO BEDTIME 07/29/18 Cyanocobalamin [Vitamin B-12*] 1,000 mcg PO BID 07/29/18 Levothyroxine Sodium 175 mcg PO DAILY 07/29/18 Losartan Potassium [Cozaar*] 50 mg PO DAILY 07/29/18 Metformin HCl [Glucophage] 1,000 mg PO BID 07/29/18 Pantoprazole Sodium [Protonix] 20 mg PO DAILY 07/29/18 Sertraline HCl 50 mg PO DAILY 07/29/18 Apixaban [Eliquis] 5 mg PO BID #60 tablet 02/19/20 Sotalol HCl [Betapace*] 80 mg PO BID 6AM 6PM #60 tab 02/19/20 - Past Medical/Surgical History Diabetic: Yes -: left foot charcot -: right foot skin graft -: htn -: dm -: hypothyroid -: osteo of foot/sepsis -: joint replacement -: lumbar fusion -: right knee -: sheri - Social History Alcohol use: No Review of Systems 10-point ROS is otherwise unremarkable Physical Examination - Vital Signs Temperature: 98.2 F Blood Pressure: 142/64 Pulse: 65 Respirations: 18 Pulse Ox (%): 97 - Physical Exam General: Alert, In no apparent distress HEENT: Atraumatic, PERRLA, Mucous membr. moist/pink, EOMI, Sclerae nonicteric Neck: Supple, 2+ carotid pulse no bruit, No LAD, Without JVD or thyroid abnormality Respiratory: Clear to auscultation bilaterally, Normal air movement Cardiovascular: Regular rate/rhythm, Normal S1 S2 Gastrointestinal: Normal bowel sounds, No tenderness Musculoskeletal: No tenderness Integumentary: No rashes, Diabetic ulcer (RIGHT FOOT SOLE AND LATERAL AREA ULCER.) Neurological: Normal gait, Normal speech, Normal strength at 5/5 x4 extr, Normal tone, Normal affect Lymphatics: No axilla or inguinal lymphadenopathy - Studies Laboratory Data (last 24 hrs) 08/25/24 08/25/24 08/25/24 16:32 16:32 16:32 WBC 8.40 Hgb 10.0 L Hct 31.7 L Plt Count 275 PT 17.2 H INR 1.56 APTT 34.7 Sodium 137 Potassium 4.2 BUN 18 Creatinine 0.89 Glucose 92 Total Bilirubin 0.6 AST < 10 L ALT 15 Alkaline Phosphatase 102 Assessment and Plan - Problems (Diagnosis) (1) Diabetic foot ulcer Current Visit: Yes Status: Acute Plan: ACUTE ON CHRONIC INFECTION. MRI OF FOOT DOPPLER FOR PVD IV ABX VANCOMYCIN CURRENTLY CHANGE TO MERREM IV BID. CULTURE AT SURGERY DR. ALBRIGHT CALLED. NPO AFTER MIDNIGHT DAY AFTER SURGERY ON SATURDAY OR BEDSIDE DEPENDING ON EVAL BY DR. ALBRIGHT. PROGNOSIS OVERALL GUARDED. MOST DIABETIC ULCERS OVER TIME END UP WITH AMPUTATION OF SOME KIND. - Advance Directives Does patient have a Living Will: No Does patient have a Durable POA for Healthcare: No
[2024-08-26 07:00] LABS: Absolute Eosinophils 0.1 K/uL (0-0.5); Absolute Lymphocytes (CBC) 1.2 K/uL (0.7-4.9); Absolute Monocytes 0.5 K/uL (0.1-1.3); Absolute Neutrophil 3.6 K/uL (1.8-8.0); Basophils % 0.5 % (0-1.3); Eosinophils % 2.6 % (0-4.4); Hematocrit 27.5 % (36.0-45.0); Hemoglobin 8.8 g/dL (12.0-15.0); Lymphocytes % 21.4 % (15.3-44.8); MCH 24.7 pg (27.0-35.0); MCHC 31.9 g/dL (32.0-36.0); MCV 77.6 fL (80-100); MPV 8.6 fL (7.6-11.3); Monocytes % 9.3 % (3.3-12.3); Neutrophils % 66.2 % (41.7-73.7); Nucleated Red Blood Cells % 0.1 % (0-0); Platelets 223 thou/uL (152-406); RBC Red Blood Cell Count 3.54 M/uL (3.86-4.86); Red Cell Distribution Width 15.5 % (12.1-15.2)
[2024-08-26 07:28] LABS: Anion Gap 7.8 mEq/L (5.0-15.0); Potassium 3.8 mEq/L (3.5-5.1)
--- NOTE | 2024-08-26 08:44 | RAD REPORT ---
EXAMINATION: US Lower Extremity Artery Uni Ltd CLINICAL INDICATION: Female, 79 years old. [facility] MAIN lower limb pvd, TECHNIQUE: Arterial duplex ultrasound was performed of the Right lower extremity with real-time, colo r-flow, and spectral wave Doppler evaluation. COMPARISON: No prior exam. FINDINGS: Moderate plaque throughout the evaluated arterial system. Redemonstrated irregularity somewhat limit s evaluation. Triphasic waveforms are seen throughout the evaluated Right lower extremity arterial system, to the level of the dorsalis pedis artery. No other suspicious findings. IMPRESSION: No evidence of significant peripheral vascular disease.
[2024-08-26] MEDS: PANTOPRAZOLE SODIUM 20 MG PO SCH (09:00)
[2024-08-26] MEDS: METHOTREXATE 2.5 MG TAB PO SCH (09:00)
--- NOTE | 2024-08-26 09:12 | P.CNS ---
Date of Consult: 08/26/24 Reason for Consult: wound right foot Requesting Physician: Serafin Carr V Chief Complaint: RIGHT FOOT INFECTION. Allergies sulfamethoxazole [From Bactrim] Allergy (Verified 08/25/24 19:53) Itching/Hives/Rash trimethoprim [From Bactrim] Allergy (Verified 08/25/24 19:53) Itching/Hives/Rash Home Medications: Atorvastatin Calcium [Lipitor*] 20 mg PO BEDTIME 07/29/18 Losartan Potassium [Cozaar*] 50 mg PO DAILY 07/29/18 Metformin HCl [Glucophage] 1,000 mg PO BID 07/29/18 Pantoprazole Sodium [Protonix] 20 mg PO DAILY 07/29/18 Apixaban [Eliquis] 5 mg PO BID #60 tablet 02/19/20 Sotalol HCl [Betapace*] 80 mg PO BID 6AM 6PM #60 tab 02/19/20 Folic Acid 1 mg PO DAILY 08/26/24 Gabapentin [Neurontin] 100 mg PO TID 08/26/24 Hydroxychloroquine [Plaquenil*] 1 tab PO BID 08/26/24 Levothyroxine Sodium [Synthroid] 150 mcg PO DAILY 08/26/24 Methotrexate [Methotrexate*] 4 tab PO EVERY 7TH DAY 08/26/24 predniSONE [Prednisone*] 1 tab PO DAILY 08/26/24 - Past Medical/Surgical History Diabetic: Yes -: left foot charcot -: right foot skin graft -: htn -: dm -: hypothyroid -: osteo of foot/sepsis -: joint replacement -: lumbar fusion -: right knee -: sheri - Family History Mother Medical History: Heart disease, Other (see notes) Notes: stomach cancer Father Medical History: Heart disease - Social History Alcohol use: No CD- Drugs: No Caffeine use: Yes Place of Residence: Home Review of Systems 10-point ROS is otherwise unremarkable Physical Examination Temp Pulse Resp BP Pulse Ox 98.5 F 68 16 140/80 95 08/26/24 08:00 08/26/24 08:00 08/26/24 08:00 08/26/24 08:00 08/26/24 08:00 General: Alert, In no apparent distress, Oriented x3 Cardiovascular: No edema, Abnormal pulses (0/4 dp and pt pulses bilateral lower extremity) Capillary refill: <2 Seconds Musculoskeletal: No clubbing, No swelling, No contractures, No erythema, No tenderness, No warmth, Other (Collapsed medial arch bilateral with prominent cuboid right foot) Integumentary: Diabetic ulcer (ulceration right plantar foot extending to lateral foot with mostly granular base. Necrotic, nonviable tissue laterally w ith sinus tract that probes to bone. Bedside debridement performed utilizing 15 blade and pickup to bone. ) Neurological: Abnormal sensation Laboratory Data (last 24 hrs) 08/25/24 08/25/24 08/25/24 16:32 16:32 16:32 WBC 8.40 Hgb 10.0 L Hct 31.7 L Plt Count 275 PT 17.2 H INR 1.56 APTT 34.7 Sodium 137 Potassium 4.2 BUN 18 Creatinine 0.89 Glucose 92 Total Bilirubin 0.6 AST < 10 L ALT 15 Alkaline Phosphatase 102 - Problems (1) Diabetic foot ulcer Current Visit: Yes Status: Acute (2) Charcot foot due to diabetes mellitus Current Visit: No Status: Chronic (3) Charcot's joint, right ankle and foot Current Visit: No Status: Chronic (4) Contracture, right foot Current Visit: No Status: Chronic (5) Diabetic ulcer of right foot Current Visit: No Status: Chronic (6) Diabetic ulcer of left foot Current Visit: No Status: Resolved Conclusions/Impression: Bedside debridment performed with vashe wet to dry packing of right foot wound. 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 Will discuss options after MRI and arterial doppler Wound cultures taken Physician Review: Patient Assessed, Agree with Above Assessment and Plan
[2024-08-26] MEDS: Meropenem 1,000 MG in NA CHLORIDE 0.9% 100 ML IV SCH (09:14)
[2024-08-26] MEDS: GABAPENTIN 100 MG CAP PO SCH (09:17)
[2024-08-26] MEDS: FOLIC ACID 1 MG TABLET PO SCH (09:17)
[2024-08-26] MEDS: METFORMIN HCL 500 MG TAB PO SCH (09:17)
[2024-08-26] MEDS: LOSARTAN POTASSIUM 50 MG TABLET PO SCH (09:17)
[2024-08-26] MEDS: LEVOTHYROXINE SOD 0.075 MG TAB PO SCH (09:17)
[2024-08-26] MEDS: HYDROXYCHLOROQUINE 200MG TAB PO SCH (09:17)
[2024-08-26] MEDS: APIXABAN 5 MG TABLET PO SCH (09:17)
[2024-08-26] MEDS ORDERED: VANCOMYCIN 1.75 GM in NA CHLORIDE 0.9% 500 ML IVPB SCH (11:00)
--- NOTE | 2024-08-26 12:46 | P.PN ---
Subjective Date of Service: 08/26/24 Chief Complaint: RIGHT FOOT INFECTION. Subjective: No new changes DR WILDER DID BEDSIDE DEBRIDMENT MRI PENDING DOPPLER NEG. Review of Systems 10-point ROS is otherwise unremarkable General: Weakness Physical Examination - Vital Signs Temperature: 98.1 F Blood Pressure: 139/75 Pulse: 68 Respirations: 16 Pulse Ox (%): 100 - Physical Exam General: Mild distress HEENT: Atraumatic, PERRLA, EOMI Neck: Supple, JVD not distended Respiratory: Clear to auscultation bilaterally, Normal air movement Cardiovascular: Regular rate/rhythm, Normal S1 S2 Gastrointestinal: Normal bowel sounds, No tenderness Musculoskeletal: No tenderness Integumentary: No rashes Neurological: Normal speech, Normal tone, Normal affect Lymphatics: No axilla or inguinal lymphadenopathy - Studies Laboratory Data (last 24 hrs) 08/25/24 08/25/24 08/25/24 16:32 16:32 16:32 WBC 8.40 Hgb 10.0 L Hct 31.7 L Plt Count 275 PT 17.2 H INR 1.56 APTT 34.7 Sodium 137 Potassium 4.2 BUN 18 Creatinine 0.89 Glucose 92 Total Bilirubin 0.6 AST < 10 L ALT 15 Alkaline Phosphatase 102 Medications List Reviewed: Yes Assessment And Plan - Current Problems (Diagnosis) (1) Diabetic foot ulcer Current Visit: Yes Status: Acute Plan: ACUTE ON CHRONIC INFECTION. MRI OF FOOT DOPPLER FOR PVD IV ABX VANCOMYCIN CURRENTLY CHANGE TO MERREM IV BID. CULTURE AT SURGERY DR. ALBRIGHT CALLED. NPO AFTER MIDNIGHT DAY AFTER SURGERY ON SATURDAY OR BEDSIDE DEPENDING ON EVAL BY DR. ALBRIGHT. PROGNOSIS OVERALL GUARDED. MOST DIABETIC ULCERS OVER TIME END UP WITH AMPUTATION OF SOME KIND. OM LIKELY USUALLY THERE IS NO GOOD ANSWER ON DEFORMED FOOT LIKE SHE HAS EXCEPT FOR AMPUTATION IN A LONG RUN. Physician Review: Patient Assessed, Agree with Above Assessment and Plan
[2024-08-26] MEDS: SOTALOL HCL 80 MG TAB PO SCH (18:07)
--- NOTE | 2024-08-26 18:57 | RAD REPORT ---
EXAM: MRI of the right foot without contrast HISTORY: Evaluate for osteomyelitis. om COMPARISON: 08/25/2024 plain radiograph TECHNIQUE: Multiplanar multisequence MR images were obtained of the right foot without contrast. FINDINGS: Abnormal marrow signal is seen involving the base of the fourth and fifth metatarsals as well as the cuboid bone laterally. There is more significant involvement of the fifth tarsal shaft relative to the fourth. There is a soft tissue ulceration seen superficial to this location. Findings are most co mpatible with osteomyelitis. There is evidence of Charcot arthropathy developing with Lisfranc dislocation developing.
[2024-08-26] MEDS: ATORVASTATIN 20 MG TAB PO SCH (20:37)
[2024-08-27] MEDS: predniSONE 5 MG TAB PO SCH (08:16)
--- NOTE | 2024-08-27 08:45 | P.PN ---
Subjective Date of Service: 08/27/24 Chief Complaint: RIGHT FOOT INFECTION. Subjective: No new changes Review of Systems 10-point ROS is otherwise unremarkable Physical Examination - Vital Signs Temperature: 98.1 F Blood Pressure: 140/66 Pulse: 55 Respirations: 16 Pulse Ox (%): 98 - Physical Exam General: Alert, In no apparent distress, Oriented x3 Cardiovascular: No edema, Normal pulses Capillary refill: <2 Seconds Musculoskeletal: No clubbing, No swelling, No contractures, No erythema, No tenderness, No warmth, Other (Raj prominence plantar lateral midfoot at level of the fifth metatarsal base and cuboid) Integumentary: Other (Ulceration and sinus tract right lateral foot is improved with minimal nonviable tissue, no purulence, reduced erythema. Cuboid is visible within the wound and is davis in color. ) Neurological: Abnormal sensation - Studies Microbiology Data (last 24 hrs): 08/25/24 16:19 Wound - Right Foot Gram Stain - Final Wound culture positive for Proteus mirabilis with sensitivities listed Imagings Data: MRI right foot is consistent with osteomyelitis of the right fourth and fifth metatarsals as well as the cuboid Arterial doppler reveals no hemodynamically significant stenosis or occlusion right lower extremity Medications List Reviewed: Yes Assessment And Plan - Current Problems (Diagnosis) (1) Diabetic foot ulcer Current Visit: Yes Status: Acute (2) Charcot foot due to diabetes mellitus Current Visit: No Status: Chronic (3) Charcot's joint, right ankle and foot Current Visit: No Status: Chronic (4) Contracture, right foot Current Visit: No Status: Chronic (5) Diabetic ulcer of right foot Current Visit: No Status: Chronic (6) Diabetic ulcer of left foot Current Visit: No Status: Resolved - Plan 1. Continue Current iv antibiotics 2. Discussed with the patient options of amputation vs iv antibiotics. Patient has been on a course of iv antibiotics in the past along with offloading shoes. The ulceration returned as well as osteomyelitis. Due the extent of osteomyelitis resection of the infected bones would leave a nonfunctional foot. Will consult Dr. Dias for input and possible below knee amputation Physician Review: Patient Assessed, Agree with Above Assessment and Plan
--- NOTE | 2024-08-27 13:01 | P.PN ---
Subjective Date of Service: 08/27/24 Chief Complaint: RIGHT FOOT INFECTION. Subjective: No new changes DR WILDER DID BEDSIDE DEBRIDMENT MRI PENDING DOPPLER NEG. SHE IS STABLE HO CHEST PAIN, NO FEVER. Review of Systems 10-point ROS is otherwise unremarkable Physical Examination - Vital Signs Temperature: 98.1 F Blood Pressure: 140/69 Pulse: 64 Respirations: 22 Pulse Ox (%): 96 - Physical Exam General: Oriented x3, Mild distress HEENT: Atraumatic, PERRLA, EOMI Neck: Supple, JVD not distended Respiratory: Clear to auscultation bilaterally, Normal air movement Cardiovascular: Regular rate/rhythm, Normal S1 S2 Gastrointestinal: Normal bowel sounds, No tenderness Musculoskeletal: No tenderness, Other (R FOOT OPEN WOUND, OM ON MRI.) Integumentary: No rashes Neurological: Normal speech, Normal tone, Normal affect Lymphatics: No axilla or inguinal lymphadenopathy - Studies Microbiology Data (last 24 hrs): 08/25/24 16:19 Wound - Right Foot Gram Stain - Final Medications List Reviewed: Yes Assessment And Plan - Current Problems (Diagnosis) (1) Diabetic foot ulcer Current Visit: Yes Status: Acute Plan: ACUTE ON CHRONIC INFECTION. MRI OF FOOT DOPPLER FOR PVD IV ABX VANCOMYCIN CURRENTLY CHANGE TO MERREM IV BID. CULTURE AT SURGERY DR. ALBRIGHT CALLED. NPO AFTER MIDNIGHT DAY AFTER SURGERY ON SATURDAY OR BEDSIDE DEPENDING ON EVAL BY DR. ALBRIGHT. PROGNOSIS OVERALL GUARDED. MOST DIABETIC ULCERS OVER TIME END UP WITH AMPUTATION OF SOME KIND. OM LIKELY USUALLY THERE IS NO GOOD ANSWER ON DEFORMED FOOT LIKE SHE HAS EXCEPT FOR AMPUTATION IN A LONG RUN. (2) Diabetic osteomyelitis Current Visit: Yes Status: Acute Plan: 3 BONES IN FOOT WITH OM. SHE HAS SEVERE FOOT DEFORMITY WITHCHARCOT JOINTS DR. WIDLER CAN'T REMOVE THE BONES SHE WILL HAVE NO FOOT LEFT TO WALK ON. HE ADVISES BKA DR. ALBRIGHT IS CONSULTED. Physician Review: Patient Assessed, Agree with Above Assessment and Plan
--- NOTE | 2024-08-27 19:25 | CON ---
Date of Consultation: 08/27/2024 Reason For Consultation: Evaluate the patient for possible amputation of the right leg and also seco nd opinion. History Of Present Illness: The patient is a 79-year-old female with bilateral foot wounds that are not healing. She has history of recurrent ulcers on the soles of both feet, which have been treated multiple times with IV antibiotics. They have healed up. She had complication with sepsis in the ri st. The wounds have been present for over 8 years and now. She comes in this time with the infectio n of the right foot and workup has revealed osteomyelitis of the right foot which she has had multipl e episodes of these infections. I was asked to evaluate the patient for possible amputation. She is awake and alert. She does use both legs. She has Charcot joints and it is difficult for her to amb ulate well, but she can bear weight easily on both feet. She has not been treated with hyperbaric ox ygen or total offloading cast. She is awake, alert. No sore throat, runny nose, cough, headaches, o r dizziness. No chest pain. No fever or chills at this time. No groin lymphadenopathy. Review of Systems: Otherwise unremarkable. Past Medical History: Significant for hypertension, diabetes, hypothyroidism, left foot Charcot join t as well as the right foot. She has had a right knee replacement, lumbar fusion, cholecystectomy. Allergies: INCLUDE BACTRIM. Social History: The patient does not smoke or drink. Family History: Noncontributory. Physical Examination: Vital Signs: Currently are stable. She is afebrile. General: She is awake, alert. Head and neck: No masses. Chest: Clear. Heart: S1, S2. Abdomen: Soft. Extremity: Palpable dorsalis pedis and posterior tibial pulses 2+ equal bilaterally. There is a wou nd on the plantar aspect of both feet. The right wound is approximately 4 x 6 cm in diameter. The l eft foot is approximately 2.5 cm in diameter. There is some granulation tissue. Some fibrinous tiss ue as well and on the lateral aspect of the right foot there is another open wound approximately 2 cm in diameter, which per Dr. Shelton's note, probes to the bone. There is erythema present on the dorsu m of the foot. There is some warmth associated with it as well. Laboratory Data: Reviewed. When she was admitted, she did have a left shift. Her white count is no rmal, however. INR is 1.56 and chemistry reviewed is essentially unremarkable. She had a foot x-ray which was reviewed as well as a foot MRI. The x-ray shows flatfoot deformity with midfoot collapse noted. Prominent ulceration seen on the plantar mid foot soft tissue, bone exposure is possible. Th is wound advance. Degenerative changes are present in the midfoot and large plantar calcaneal spur. She had an MRI of the right foot as well, which showed abnormal marrow signal involving the base of the fourth and fifth metatarsal as well as the cuboid bowed laterally. There is more significant inv olvement of the fifth tarsal shaft relative to the fourth. There is soft tissue ulceration seen supe rficial to this location. Findings are compatible with osteomyelitis and there is also evidence of C harcot arthropathy developing with Lisfranc dislocation. She had an arterial Doppler done which esse karli was shows triphasic blood flow throughout the right lower extremity. Assessment: A 79-year-old female with multiple medical problems with osteomyelitis, Charcot joint an d Lisfranc dislocation of the right foot and also a nonhealing wound on the left foot. Recommendation: Although, right leg amputation is an option. I believe that based on the patient's history, I think we should at least try 6 weeks IV antibiotics based on the culture, which was Proteu s and sensitive to Levaquin, which is adequate and hyperbaric oxygen therapy and should the patient n ot respond to conservative treatment then recommendation of an amputation would be appropriate. Afte r discussing all the options, the risks, the benefits of the alternatives with the patient and [facility], they have opted to try the IV antibiotics and hyperbaric. Plan of care was also discussed in detail with Dr. Shelton and Dr. Carr. Please note, Dr. Shelton will manage the wounds at this time and I will be reconsulted should amputatio n become an option in the future. ESTRELLA/HILDAL Voice ID: [id number] Report ID: [id number]
[2024-08-28] MEDS: Mupirocin NASAL 2 APPL/1 GM TUBE NAS SCH (09:20)
--- NOTE | 2024-08-28 10:16 | RAD REPORT ---
EXAMINATION: ONE VIEW CHEST XR CLINICAL INDICATION: PICC Placement TECHNIQUE: Frontal chest projection is submitted. Examination is limited by patient positioning and t echnique. COMPARISON: 02/18/2020 FINDINGS: Left-sided PICC line is tip in SVC. The lungs are grossly clear. Moderate cardiomegaly.
[2024-08-28 10:51] VITALS: O2SAT 99
--- NOTE | 2024-08-28 13:40 | P.PN ---
Subjective Date of Service: 08/28/24 Chief Complaint: RIGHT FOOT INFECTION. Subjective: Improving, Doing well Review of Systems 10-point ROS is otherwise unremarkable Physical Examination - Vital Signs Temperature: 97.7 F Blood Pressure: 150/68 Pulse: 62 Respirations: 20 Pulse Ox (%): 100 - Physical Exam General: Alert, In no apparent distress, Oriented x3 Cardiovascular: No edema, Normal pulses Capillary refill: <2 Seconds Musculoskeletal: No clubbing, No swelling, No contractures, No erythema, No tenderness, No warmth Integumentary: Other (Ulceration right lateral foot with sinus tract is improved with no periwound erythema, no necrotic tissue, large granulation. ) Neurological: Abnormal sensation - Studies Microbiology Data (last 24 hrs): 08/25/24 16:19 Wound - Right Foot Gram Stain - Final Medications List Reviewed: Yes Assessment And Plan - Current Problems (Diagnosis) (1) Diabetic foot ulcer Current Visit: Yes Status: Acute (2) Charcot foot due to diabetes mellitus Current Visit: No Status: Chronic (3) Charcot's joint, right ankle and foot Current Visit: No Status: Chronic (4) Contracture, right foot Current Visit: No Status: Chronic (5) Diabetic ulcer of right foot Current Visit: No Status: Chronic (6) Diabetic ulcer of left foot Current Visit: No Status: Resolved - Plan 1. Continue Current iv antibiotics 2. Patient to follow up in Wound Care 08/31/24December 3. Continue vashe wet to dry dressing daily right foot 4. Dispense surgical shoe right foot Physician Review: Patient Assessed, Agree with Above Assessment and Plan
--- NOTE | 2024-08-28 15:22 | P.PN ---
Subjective Date of Service: 08/28/24 Chief Complaint: right foot osteomyelitis Subjective: Improving DR WILDER DID BEDSIDE DEBRIDMENT MRI PENDING DOPPLER NEG. SHE IS STABLE HO CHEST PAIN, NO FEVER. SHE WANTS TO DO IV ABX AND HBO. HOSPITAL HAS A NEW MACHINE NOW FOR HBO. Review of Systems 10-point ROS is otherwise unremarkable Physical Examination - Vital Signs Temperature: 97.7 F Blood Pressure: 150/68 Pulse: 62 Respirations: 20 Pulse Ox (%): 100 - Physical Exam General: Acute distress, Mild distress HEENT: Atraumatic, PERRLA, EOMI Neck: Supple, JVD not distended Respiratory: Clear to auscultation bilaterally, Normal air movement Cardiovascular: Regular rate/rhythm, Normal S1 S2 Gastrointestinal: Normal bowel sounds, No tenderness Musculoskeletal: No tenderness Integumentary: No rashes Neurological: Normal speech, Normal tone, Normal affect Lymphatics: No axilla or inguinal lymphadenopathy - Studies Microbiology Data (last 24 hrs): 08/25/24 16:19 Wound - Right Foot Gram Stain - Final Medications List Reviewed: Yes Assessment And Plan - Current Problems (Diagnosis) (1) Diabetic foot ulcer Current Visit: Yes Status: Acute Plan: ACUTE ON CHRONIC INFECTION. MRI OF FOOT DOPPLER FOR PVD IV ABX VANCOMYCIN CURRENTLY CHANGE TO MERREM IV BID. CULTURE AT SURGERY DR. ALBRIGHT CALLED. NPO AFTER MIDNIGHT DAY AFTER SURGERY ON SATURDAY OR BEDSIDE DEPENDING ON EVAL BY DR. ALBRIGHT. PROGNOSIS OVERALL GUARDED. MOST DIABETIC ULCERS OVER TIME END UP WITH AMPUTATION OF SOME KIND. OM LIKELY USUALLY THERE IS NO GOOD ANSWER ON DEFORMED FOOT LIKE SHE HAS EXCEPT FOR AMPUTATION IN A LONG RUN. (2) Diabetic osteomyelitis Current Visit: Yes Status: Acute Plan: 3 BONES IN FOOT WITH OM. SHE HAS SEVERE FOOT DEFORMITY WITHCHARCOT JOINTS DR. WILDER CAN'T REMOVE THE BONES SHE WILL HAVE NO FOOT LEFT TO WALK ON. HE ADVISES BKA DR. ALBRIGHT IS CONSULTED. SHE WANTS IV ABX AND HBO I HAVE NOT SEEN THIS WORK FOR MOST PATIENTS ESPECIALLY FOR SOMEONE WITH SEVERE CHARCOT JOINTS THIS MAY BE A COSTLY AND FAILING THERAPY FOR HER. SHE WILL THINK ABOUT IT. I AM WAITING FOR SETUP FOR IV ABX AT HOME. Physician Review: Patient Assessed, Agree with Above Assessment and Plan
[2024-08-28] MEDS ORDERED: CEFTAZIDIME 2 GM/VIAL IV SCH (17:00)
[2024-08-28 17:35] LABS: Absolute Basophils 0.1 K/uL (0-0.5); Absolute Eosinophils 0.1 K/uL (0-0.5); Absolute Lymphocytes (CBC) 0.8 K/uL (0.7-4.9); Absolute Monocytes 0.4 K/uL (0.1-1.3); Absolute Neutrophil 6.9 K/uL (1.8-8.0); Basophils % 0.8 % (0-1.3); Eosinophils % 1.7 % (0-4.4); Hematocrit 30.9 % (36.0-45.0); Hemoglobin 9.7 g/dL (12.0-15.0); Lymphocytes % 9.6 % (15.3-44.8); MCH 24.1 pg (27.0-35.0); MCHC 31.3 g/dL (32.0-36.0); MCV 77.1 fL (80-100); MPV 8.1 fL (7.6-11.3); Monocytes % 4.7 % (3.3-12.3); Neutrophils % 83.2 % (41.7-73.7); Platelets 312 thou/uL (152-406); RBC Red Blood Cell Count 4.01 M/uL (3.86-4.86); Red Cell Distribution Width 15.4 % (12.1-15.2)
[2024-08-28 17:52] LABS: Anion Gap 9.6 mEq/L (5.0-15.0); Potassium 4.6 mEq/L (3.5-5.1)
[2024-08-28] MEDS: CEFTAZIDIME 2 GM in NA CHLORIDE 0.9% 100 ML IV SCH (20:35)
--- NOTE | 2024-08-29 17:26 | P.DS ---
Admission Date: 08/25/24 Discharge Date: 08/29/24 Disposition: DC HOME/HOME HEALTH CARE Discharge Condition: FAIR Reason for Admission: right foot osteomyelitis - Problems (1) Diabetic foot ulcer Status: Acute (2) Diabetic osteomyelitis Status: Acute Brief History of Present Illness: DANIELLE IS A DIABETIC WITH CHARCOT JOINTS WHO HAS HAD RECURRENT ULCERS ON THE SOLE OF RIGHT FOOT SHE HAS SEVERE COLLAPSE OF THE ARCH. SHE WAS SENT BY DR. SHELTON SHE HAS SHOWN INFECTION OF THE SKIN AROUND THE ULCER NOW STREAKING TO R LATERAL FOOT WITH A SINUS TRACT. Hospital Course: Danielle has Diabetic foot ulcer with OM in 3 bones. She has no arches with Charcot joints. She walks on the planter surface that is prominent and has callus with ulcer beneath and now OM. She does not carry a good prognosis for saving this foot. She still wants IV Abx and HBO instead of BKA. She may get BKA in future anyway. We arranged for IV Fortaz for Proteus from the wound culture. She will fu with Dr. Shelton and Dr. Dias. Vital Signs/Physical Exam: Temp Pulse Resp BP Pulse Ox 98.4 F 67 16 162/95 H 99 08/29/24 12:00 08/29/24 12:00 08/29/24 12:00 08/29/24 12:00 08/29/24 12:00 Laboratory Data at Discharge: WBC 8.30 thou/uL (4.3-10.9) 08/28/24 17:20 Hgb 9.7 g/dL (12.0-15.0) L 08/28/24 17:20 Hct 30.9 % (36.0-45.0) L 08/28/24 17:20 Plt Count 312 thou/uL (152-406) 08/28/24 17:20 PT 17.2 SECONDS (9.4-12.5) H 08/25/24 16:32 INR 1.56 08/25/24 16:32 APTT 34.7 SECONDS (24.3-36.9) 08/25/24 16:32 Sodium 135 mEq/L (136-145) L 08/28/24 17:20 Potassium 4.6 mEq/L (3.5-5.1) 08/28/24 17:20 BUN 15 mg/dL (7-18) 08/28/24 17:20 Creatinine 0.74 mg/dL (0.55-1.02) 08/28/24 17:20 Glucose 126 mg/dL (74-106) H 08/28/24 17:20 Total Bilirubin 0.6 mg/dL (0.2-1.0) 08/25/24 16:32 AST < 10 U/L (15-37) L 08/25/24 16:32 ALT 15 U/L (13-56) 08/25/24 16:32 Alkaline Phosphatase 102 U/L (45-117) 08/25/24 16:32 Home Medications: Atorvastatin Calcium [Lipitor*] 20 mg PO BEDTIME 07/29/18 Losartan Potassium [Cozaar*] 50 mg PO DAILY 07/29/18 Metformin HCl [Glucophage] 1,000 mg PO BID 07/29/18 Pantoprazole Sodium [Protonix] 20 mg PO DAILY 07/29/18 Apixaban [Eliquis] 5 mg PO BID #60 tablet 02/19/20 Sotalol HCl [Betapace*] 80 mg PO BID 6AM 6PM #60 tab 02/19/20 Folic Acid 1 mg PO DAILY 08/26/24 Gabapentin [Neurontin] 100 mg PO TID 08/26/24 Hydroxychloroquine [Plaquenil*] 1 tab PO BID 08/26/24 Levothyroxine Sodium [Synthroid] 150 mcg PO DAILY 08/26/24 Methotrexate [Methotrexate*] 4 tab PO EVERY 7TH DAY 08/26/24 predniSONE [Prednisone*] 1 tab PO DAILY 08/26/24 Followup: Serafin Carr MD [Primary Care Provider] -
--- NOTE | 2024-08-31 11:03 | EKG ---
Test Date: 2024-08-25 Test Time: 16:22:24 Human Resource Adviser: MANSOOR MEASUREMENT RESULTS: Intervals: Rate: 70 MI: 148 QRSD: 98 QT: 416 QTc: 449 [place]: P: 25 MI: 148 QRS: -54 T: 60 INTERPRETIVE STATEMENTS: Sinus rhythm with premature atrial complexes Left anterior fascicular block Minimal voltage criteria for LVH, may be normal variant Abnormal ECG Compared to ECG 02/19/2020 08:46:36 Atrial premature complex(es) now present Sinus arrhythmia no longer present Electronically Signed On 08-31-24 10:57:24 PORTABLE TRACK LINE MARKER by Giancarlo Dejesus
[2024-09-01 15:13] VITALS: BP 162/95; TEMP 98.4
== END 2024-08-29 13:10 | disposition home health service (06) | DRG 638 ==
LOC: ER 15:57 → ERHOLD 17:00 → 4TH 17:27
PROVIDERS: ADMIT Internal Medicine; ATTEND Internal Medicine
PROC: 0HDMXZZ Extraction of Right Foot Skin, External Approach (ICD-10-PCS; 2024-08-26)
PROC: 02HV33Z Insertion of Infusion Device into Superior Vena Cava, Percutaneous Approach (ICD-10-PCS; principal; 2024-08-28)
DX: E11.69 Type 2 diabetes mellitus with other specified complication (principal); L03.115 Cellulitis of right lower limb; M86.171 Other acute osteomyelitis, right ankle and foot; I48.91 Unspecified atrial fibrillation; E03.9 Hypothyroidism, unspecified; I10 Essential (primary) hypertension; E11.621 Type 2 diabetes mellitus with foot ulcer; L97.519 Non-pressure chronic ulcer of other part of right foot with unspecified severity; L97.529 Non-pressure chronic ulcer of other part of left foot with unspecified severity; E11.610 Type 2 diabetes mellitus with diabetic neuropathic arthropathy; M24.574 Contracture, right foot; B96.4 Proteus (mirabilis) (morganii) as the cause of diseases classified elsewhere; Z88.1 Allergy status to other antibiotic agents; Z90.49 Acquired absence of other specified parts of digestive tract; Z79.890 Hormone replacement therapy; Z79.84 Long term (current) use of oral hypoglycemic drugs; Z79.899 Other long term (current) drug therapy; Z79.01 Long term (current) use of anticoagulants; Z79.52 Long term (current) use of systemic steroids; Z96.651 Presence of right artificial knee joint
CPT/HCPCS: 36415; 71045; 80048; 80053; 82947; 83605; 85025; 85610; 85730; 87040; 87070; 87075; 87077; 87186; 87205; 93005; 93926; 96365; 99285; J0713; J2185; J7040; J7050; J7512

== ENCOUNTER 2024-09-03 09:48 | Emergency (ER) | payer OTHER, BC ==
--- OUTSIDE RECORDS SUMMARY | 2024-09-03 09:52 | XMS REPORT | Continuity of Care Document ---
Author Name Unknown Address [address] [place] [address] [facility] Address [address] [place] [address] Care Team Providers Care Driver Manager Name Role Phone Unavailable Unavailable Unavailable
[2024-09-03] MEDS ORDERED: ALTEPLASE 2 MG/VIAL IV ONE (10:08)
[2024-09-03] MEDS ORDERED: WATER FOR INJ,STERILE 20 ML ONE (10:09)
--- NOTE | 2024-09-03 10:40 | EDPHYS ---
Physician Documentation [facility] Name: Danielle Johnsno Age: 79 yrs Sex: Female : 1945 Arrival Date: 09/03/2024 Time: 09:48 Bed 20 Private MD: ED Physician Joseph Orellana HPI: 09/03 10:06 This 79 yrs old Female presents to ER via Ambulatory with complaints of PICC judson LINE PROBLEM. 10:06 The patient or guardian complains of PICC NOT WORKING. The complaints affect the left judson bicep and left tricep. Context: The problem was sustained at an unknown location, resulted from USUAL CAUSES. Onset: The symptoms/episode began/occurred 2 day(s) ago. Treatment prior to arrival includes: no previous treatment. Historical: - Allergies: 09:59 Bactrim; ss - PMHx: :59 Aortic Stenosis; Atrial fibrillation; diabetes mellitus; Hypertensive disorder; ss Hypothyroidism; - PSHx: 09:59 back fusion; Cholecystectomy; right foot; right knee; ss - Immunization history:: Adult Immunizations up to date. - Infectious Disease History:: Denies. - Social history:: Smoking status: Patient denies any tobacco usage or history of. - Family history:: not pertinent. ROS: 10:06 Constitutional: Negative for fever, chills, and weight loss, Eyes: Negative for injury, judson pain, redness, and discharge, ENT: Negative for injury, pain, and discharge, Neck: Negative for injury, pain, and swelling, Cardiovascular: Negative for chest pain, palpitations, and edema, Respiratory: Negative for shortness of breath, cough, wheezing, and pleuritic chest pain, Abdomen/GI: Negative for abdominal pain, nausea, vomiting, diarrhea, and constipation, Back: Negative for injury and pain, MS/Extremity: Negative for injury and deformity, Skin: Negative for injury, rash, and discoloration, Neuro: Negative for headache, weakness, numbness, tingling, and seizure, Psych: Negative for depression, anxiety, suicide ideation, homicidal ideation, and hallucinations, Allergy/Immunology: Negative for hives, rash, and allergies, Endocrine: Negative for neck swelling, polydipsia, polyuria, polyphagia, and marked weight changes, Hematologic/Lymphatic: Negative for swollen nodes, abnormal bleeding, and unusual bruising, Exam: 10:06 Constitutional: This is a well developed, well nourished patient who is awake, alert, judson and in no acute distress. Head/Face: Normocephalic, atraumatic. Eyes: Pupils equal round and reactive to light, extra-ocular motions intact. Lids and lashes normal. Conjunctiva and sclera are non-icteric and not injected. Cornea within normal limits. Periorbital areas with no swelling, redness, or edema. ENT: Nares patent. No nasal discharge, no septal abnormalities noted. Tympanic membranes are normal and external auditory canals are clear. Oropharynx with no redness, swelling, or masses, exudates, or evidence of obstruction, uvula midline. Mucous membranes moist. Neck: Trachea midline, no thyromegaly or masses palpated, and no cervical lymphadenopathy. Supple, full range of motion without nuchal rigidity, or vertebral point tenderness. No Meningismus. Chest/axilla: Normal chest wall appearance and motion. Nontender with no deformity. No lesions are appreciated. Cardiovascular: Regular rate and rhythm with a normal S1 and S2. No gallops, murmurs, or rubs. Normal PMI, no JVD. No pulse deficits. Respiratory: Lungs have equal breath sounds bilaterally, clear to auscultation and percussion. No rales, rhonchi or wheezes noted. No increased work of breathing, no retractions or nasal flaring. Abdomen/GI: Soft, non-tender, with normal bowel sounds. No distension or tympany. No guarding or rebound. No evidence of tenderness throughout. Back: No spinal tenderness. No costovertebral tenderness. Full range of motion. Skin: Warm, dry with normal turgor. Normal color with no rashes, no lesions, and no evidence of cellulitis. MS/ Extremity: Pulses equal, no cyanosis. Neurovascular intact. Full, normal range of motion., bilateral aka Neuro: Awake and alert, GCS 15, oriented to person, place, time, and situation. Cranial nerves II-XII grossly intact. Motor strength 5/5 in all extremities. Sensory grossly intact. Cerebellar exam normal. Normal gait. Psych: Awake, alert, with orientation to person, place and time. Behavior, mood, and affect are within normal limits. Vital Signs: 09:59 BP 140 / 71; Pulse 80; Resp 16; Temp 97.2; Pulse Ox 100% on R/A; Weight 92.99 kg; ll1 Height 5 ft. 7 in. ; Pain 0/10; 09:59 Body Mass Index 32.11 (92.99 kg, 170.18 cm) ll1 09:59 Pain Scale: Adult ll1 MDM: 09:51 Medical Screening Exam initiated judson Administered Medications: 10:18 Drug: Cathflo Activase IV Thrombolytics 2 mg IV Thrombolytics once; into each catheter [id number] lumen, may repeat once Route: IV Thrombolytics; 10:46 Follow up: Response: No adverse reaction [id number] Disposition Summary: 09/03/24 10:40 Discharge Ordered Notes: Location: Home judson Problem: new judson Symptoms: have improved judson Condition: Stable judson Diagnosis - Presence of cardiac and vascular implant and graft, unspecified - PICC, OCCLUDED, judson FLUSHED PATENT Followup: judson - With: Private Physician - When: 2 - 3 days - Reason: Recheck today's complaints, Continuance of care, Re-evaluation by your physician Discharge Instructions: - Discharge Summary Sheet judson - Peripheral Intravenous Catheter Placement, Adult, Care After judson Forms: - Medication Reconciliation Form judson - Antibiotic Education judson - Prescription Opioid Use judson - Patient Portal Instructions [facility] - Leadership Thank You Letter [facility] Signatures: Joseph Orellana MD MD cha Blanchard, Shelby, RN RN ss Nayely Singer RN RN ll1 Adriane Adler RN RN [email or web address]
--- NOTE | 2024-09-03 10:40 | ER ---
Nurse's Notes [facility] Kashif Name: Danielle Johnson Age: 79 yrs Sex: Female : 1945 Arrival Date: 09/03/2024 Time: 09:48 Bed 20 Private MD: Diagnosis: Presence of cardiac and vascular implant and graft, unspecified-PICC, OCCLUDED, FLUSHED PATENT Presentation: 09/03 09:59 Chief complaint: Patient states: Both ports to LUE PICC line are not flowing well. ll1 Coronavirus screen: Client denies travel out of the [place] in the last 14 days. At this time, the client does not indicate any symptoms associated with coronavirus-19. Ebola Screen: Patient denies travel to an Ebola-affected area in the 21 days before illness onset. Initial Sepsis Screen: Does the patient meet any 2 criteria? No. Patient's initial sepsis screen is negative. Does the patient have a suspected source of infection? No. Patient's initial sepsis screen is negative. Risk Assessment: Do you want to hurt yourself or someone else? Patient reports no desire to harm self or others. Onset of symptoms was September 03, 2024. 09:59 Method Of Arrival: Ambulatory ll1 09:59 Acuity: MELISSA 4 ll1 Triage Assessment: 10:01 General: Appears in no apparent distress. Behavior is calm, cooperative, appropriate ll1 for age. General: Reports LUE PICC line clogged, both ports. Pain: Denies pain. Neuro: No deficits noted. Historical: - Allergies: 09:59 Bactrim; ss - PMHx: 09:59 Aortic Stenosis; Atrial fibrillation; diabetes mellitus; Hypertensive disorder; ss Hypothyroidism; - PSHx: 09:59 back fusion; Cholecystectomy; right foot; right knee; ss - Immunization history:: Adult Immunizations up to date. - Infectious Disease History:: Denies. - Social history:: Smoking status: Patient denies any tobacco usage or history of. - Family history:: not pertinent. Screenin:03 [facility] ED Fall Risk Assessment (Adult) History of falling in the last 3 months, kc6 including since admission No falls in past 3 months (0 pts) Confusion or Disorientation No (0 pts) Intoxicated or Sedated No (0 pts) Impaired Gait No (0 pts) Mobility Assist Device Used No (0 pt) Altered Elimination No (0 pt) Score/Fall Risk Level 0 - 2 = Low Risk Oriented to surroundings, Maintained a safe environment, Educated pt \T\ family on fall prevention, incl call for assistance when getting out of bed. Abuse screen: Denies threats or abuse. Denies injuries from another. Nutritional screening: No deficits noted. Tuberculosis screening: No symptoms or risk factors identified. Assessment: 10:47 General: Appears in no apparent distress. comfortable, well groomed, well developed, kc6 Behavior is calm, cooperative, appropriate for age. Pain: Denies pain. Neuro: Level of Consciousness is awake, alert, obeys commands, Oriented to person, place, time, situation, Appropriate for age. Cardiovascular: No deficits noted. Capillary refill. Respiratory: Airway is patent Trachea midline Respiratory effort is even, unlabored, Respiratory pattern is regular, symmetrical. GI: No signs and/or symptoms were reported involving the gastrointestinal system. : No signs and/or symptoms were reported regarding the genitourinary system. EENT: No signs and/or symptoms were reported regarding the EENT system. Derm: No signs and/or symptoms reported regarding the dermatologic system. Skin is intact, is healthy with good turgor, Skin is pink, warm \T\ dry. Musculoskeletal: No signs and/or symptoms reported regarding the musculoskeletal system. Circulation, motion, and sensation intact. Range of motion: intact in all extremities. Vital Signs: 09:59 BP 140 / 71; Pulse 80; Resp 16; Temp 97.2; Pulse Ox 100% on R/A; Weight 92.99 kg; ll1 Height 5 ft. 7 in. ; Pain 0/10; 09:59 Body Mass Index 32.11 (92.99 kg, 170.18 cm) ll1 09:59 Pain Scale: Adult ll1 ED Course: 09:51 Patient arrived in ED. al6 09:51 Joseph Orellana MD is Attending Physician. judson 09:53 Arm band placed on Patient placed in an exam room, on a stretcher. ss 09:57 Adriane Adler, CEDRIC is Primary Nurse. kc6 10:01 Triage completed. ll1 10:03 Patient has correct armband on for positive identification. Bed in low position. Call kc6 light in reach. Side rails up X 1. Adult w/ patient. Pulse ox on. NIBP on. Door closed. Noise minimized. Lights dimmed. Pillow given. 10:03 Patient maintains SpO2 saturation greater than 95% on room air. kc6 10:46 No provider procedures requiring assistance completed. Patient did not have IV access kc6 during this emergency room visit. Administered Medications: 10:18 Drug: Cathflo Activase IV Thrombolytics 2 mg IV Thrombolytics once; into each catheter kc6 lumen, may repeat once Route: IV Thrombolytics; 10:46 Follow up: Response: No adverse reaction kc6 Medication: 10:47 VIS not applicable for this client. kc6 Outcome: 10:40 Discharge ordered by . judson 10:47 Discharged to home ambulatory, with family, [facility] 10:47 Condition: improved 10:47 Discharge instructions given to patient, family, Instructed on discharge instructions, follow up and referral plans. Demonstrated understanding of instructions, follow-up care, 10:47 Patient left the ED. kc6 Signatures: Joseph Orellana MD MD cha Blanchard, Shelby RN RN Nayely Singer RN RN ll1 Adriane Adler RN RN kc6 Alecia Abad6
[2024-09-04 02:52] VITALS: BP 140/71; TEMP 97.2; O2SAT 100
== END 2024-09-03 10:47 | disposition home or self-care (01) ==
LOC: ER 09:48
DX: T82.898A Other specified complication of vascular prosthetic devices, implants and grafts, initial encounter (principal); Z95.9 Presence of cardiac and vascular implant and graft, unspecified
CPT/HCPCS: 92977; 99284; J2997

== ENCOUNTER 2025-04-12 10:45 | Day surgery (SDC) | payer OTHER, BC ==
[2025-04-12 15:46] VITALS: BP 154/62; O2SAT 96
--- NOTE | 2025-04-13 02:50 | OP ---
Date of Procedure: 04/12/2025 Surgeon: TERESA LINN Procedure Performed: Transesophageal echocardiogram. Indication: Atrial fibrillation, status post appendage closure. Description Of Procedure: After risks, benefits, and alternatives were explained, the patient agreed to procedure and signed informed consent. The patient had a deep sedation administered by general a nesthesia and then I advanced a EMERSON probe without difficulty. We did a transesophageal echocardiogra m. Watchman was seated very well. No leak or thrombus. Removed the EMERSON probe. The patient was sen t to recovery in stable condition. Conclusion: Successful transesophageal echocardiogram showing appendage closure device in good posit ion. No leak or thrombus. SR/MODL Voice ID: [id number] Report ID: [id number]
--- NOTE | 2025-04-13 13:10 | TEE ---
TRANSESOPHAGEAL ECHOCARDIOGRAM REPORT CARDIOLOGY DEPARTMENT DATE OF STUDY: 04/12/2025 HEIGHT: 5'7" WEIGHT: 186 lbs DIAGNOSIS[facility] COMMENTS: EMERSON CARDIAC HISTORY: CATHERIZATION: SURGERY: PROSTHETIC VALVE: PACEMAKER: 2 DIMENSIONAL ASSESSMENT: RIGHT ATRIUM: LEFT ATRIUM: RIGHT VENTRICLE: LEFT VENTRICLE: TRICUSPID VALVE: MITRAL VALVE: PULMONIC VALVE: AORTIC VALVE: PERICARDIAL EFFUSION: AORTIC ROOT: EJECTION FRACTION: LEFT VENTRICULAR WALL MOTION: DOPPLER/COLOR FLOW: COMMENTS: 1. NORMAL SEATED LEFT ATRIAL APPENDAGE CLOSURE DEVICE (WATCHMAN), NO THROMBUS, NO LEAK TECHNOLOGIST: JAZMYN PATEL
== END 2025-04-12 13:10 | disposition home or self-care (01) ==
LOC: EKG 10:45
PROVIDERS: ATTEND Internal Medicine
DX: I48.11 Longstanding persistent atrial fibrillation (principal); Z98.890 Other specified postprocedural states; Z88.1 Allergy status to other antibiotic agents
CPT/HCPCS: 1922; 93312